=== PATIENT | male | born 1955 | race Caucasian/White ===

== ENCOUNTER 2016-10-20 20:43 | Emergency (ER) | payer SELFPAY ==
[2016-10-20] MEDS: AMIODARONE IV ONE ×2 (20:57→21:18)
[2016-10-20] MEDS: D5W IV ONE ×2 (20:57→21:18)
[2016-10-20] MEDS ORDERED: AMIODARONE IV ONE ×2 (20:59→21:01)
[2016-10-20] MEDS ORDERED: AMIODARONE 50 MG/ML IV ONE (20:59)
[2016-10-20] MEDS ORDERED: D5W IV ONE ×2 (20:59→21:01)
[2016-10-20] MEDS ORDERED: Sodium Chloride 0.9% 1,000 ML PRIMARY IV ONE ×2 (21:00→21:10)
[2016-10-20] MEDS ORDERED: ASPIRIN 81 MG (BABY) CHEWABLE TABLET PO ONE (21:10)
[2016-10-20] MEDS ORDERED: NORMAL SALINE 10 ML SYRINGE FLUSH IVP PRN (21:10)
--- NOTE | 2016-10-20 21:13 | EKG ---
[address] [place] [address] Measurements Intervals [place] Rate: 132 P: DE: 0 QRS: 128 QRSD: 158 T: 0 QT: 209 QTc: 287 Interpretive Statements SINUS RHYTHM WITH RUNS OF WIDE COMPLEX TACHYCARDIA, PROBABLE VENTRICULAR TACHYCARDIA INTRAVENTRICULAR CONDUCTION DELAY T WAVE INVERSION IN LEADS 1 AVL, CONSIDER LATERAL WALL ISCHEMIA LOSS OF R FORCES IN V3-V6 WITH ST ELEVATION, POSSIBLE LATERAL WALL INFARCT Compared to ECG 10/15/2015 09:24 Ventricular tachycardia now present Intraventricular conduction present Lateral wall ischemia or infarct now present Electronically Signed On 10-21-16 12:13:[address] [facility] by Marbin Sánchez [id number]
[2016-10-20] MEDS ORDERED: AMIODARONE IV SCH (21:15)
[2016-10-20 21:17] LABS: BASOPHILS # (AUTO) 0.04 10*3/UL; BASOPHILS % (AUTO) 0.2 % (0-1); EOSINOPHILS % (AUTO) 0.6 % (0-8); HEMATOCRIT 43.9 % (42.0-52.0); HEMOGLOBIN 15.1 g/dL (14.0-18.0); IMM GRAN % (AUTO) 0.2 % (0-5); IMM GRAN# (AUTO) 0.04 10*3/UL; LYMPHOCYTES # (AUTO) 0.52 10*3/uL; LYMPHOCYTES % (AUTO) 2.9 % (10-50); MEAN CORPUSCULAR HEMOGLOBIN 31.1 PG (27-31); MEAN CORPUSCULAR HGB CONC 34.4 g/dL (33-37); MEAN PLATELET VOLUME 10.8 FL (7.4-12.2); MONOCYTES # (AUTO) 0.98 10*3/UL (0.3-0.8); MONOCYTES % (AUTO) 5.6 % (5-15); NEUTROPHILS # (AUTO) 15.95 10*3/UL; NEUTROPHILS % (AUTO) 90.5 % (50-80); PLATELET MORPHOLOGY COMMENT NORMAL MORPHOLOGY (NORM); RDW COEFFICIENT OF VARIATION 14.3 % (11.5-14.5); RED BLOOD COUNT 4.86 10^6/uL (4.70-6.10); WHITE BLOOD COUNT 17.64 10^3/uL (4.8-10.8)
[2016-10-20 21:18] LABS: PROTHROMBIN TIME 10.7 secs (9.7-11.4)
[2016-10-20 21:20] LABS: BILIRUBIN,TOTAL 1.5 mg/dL (0.3-1.2); BUN/CREATININE RATIO 24.66 (6-20); CALCIUM 9.8 mg/dL (8.7-10.7); CREATININE 1.5 mg/dL (0.70-1.50); POTASSIUM 4.1 meq/L (3.8-5.2); TOTAL PROTEIN 7.6 g/dL (6.1-8.0)
[2016-10-20 21:21] LABS: MAGNESIUM 1.9 mg/dL (1.6-2.4)
[2016-10-20 21:22] LABS: TROPONIN I 0.043 ng/mL (< 0.040)
[2016-10-20] MEDS ORDERED: FUROSEMIDE 10 MG/1 ML - 4 ML IVP ONE (21:27)
[2016-10-20 21:31] LABS: CREATINE KINASE MB 0.34 NG/DL (0.00-5.00)
[2016-10-20] MEDS ORDERED: FUROSEMIDE 10 MG/1 ML - 4 ML ONE (21:34)
--- NOTE | 2016-10-20 21:37 | EKG ---
[address] [address] Measurements Intervals [place] Rate: 94 P: 9 CA: 177 QRS: 57 QRSD: 137 T: 269 QT: 370 QTc: 422 Interpretive Statements SINUS RHYTHM WITH FREQUENT VENTRICULAR PREMATURE COMPLEXES INTRAVENTRICULAR CONDUCTION DELAY INFERIOR T WAVE INVERSION, POSSIBLE MYOCARDIAL ISCHEMIA Compared to ECG 10/20/2016 20:55:55 Ventricular premature complex(es) now present Inferior T wave inversion now present Electronically Signed On 10-21-16 12:00:30 [facility] by Marbin Sánchez [email or web address]
[2016-10-20 21:43] LABS: VENOUS HCO3 24.3 mmol/L (22-26)
--- NOTE | 2016-10-20 22:31 | PDOC ---
Dyspnea HPI - General Chief Complaint: Dyspnea Stated Complaint: shortness of breath Date Seen by Provider: 10/20/16 Time Seen by Provider: 21:50 Source: POSITIVE: Patient, Old records Exam Limitations: POSITIVE: No limitations Treatment Prior to Arrival: REPORTS: None Nurse's Notes Reviewed & Considered: Yes - History of Present Illness Initial Comments: The patient is a 61-year-old male. He presents to the emergency room complaining of an approximately one day history of shortness of breath. Old record shows that he has a past diagnosis of congestive heart failure and cor pulmonale. Patient is on 3 L of oxygen by nasal cannula at night. Patient states he has had a "cold with some cough"for the past 2-1/2 days. Cough is minimally productive. Review of old records shows that he had an echocardiogram in October 2015 which showed an ejection fraction of 30%. He states he was recently seen by cardiology in [place] and had a stress test and an echocardiogram, and it was recommended that the patient have a cardiac catheterization, but the patient has not yet had this done. Patient used to smoke 2 packs of cigarettes per day, but has not smoked for several years, although he does chew about 1-1/2 cans of tobacco per day. Patient has a history of alcohol abuse and states he has not had any alcohol for the past 6-7 months. Patient also complains of prominent pedal edema. He denies any chest pain. He did become diaphoretic this evening. History of hypertension and non- insulin-dependent diabetes mellitus. Body Location Affected: REPORTS: Chest (Dyspnea) Timing: REPORTS: Gradual, Getting Worse Duration: >24 hours (Approximately 24 hours) Severity: Moderate Quality: REPORTS: Other (Patient denies any chest pain or other pain) Initiating Event: REPORTS: Upper Respiratory Illness (Cold symptoms for the past 2-1/2 days) Context: REPORTS: Sleep (Worse with trying to sleep), Exertion (Worse with exertion) Exacerbated By: REPORTS: Exertion, Laying Flat, Coughing Associated Symptoms: REPORTS: Leg Swelling (Prominent pulmonary edema). DENIES : Fever, Chills, Sweating, Chest Pain, Chest Discomfort, Left Chest, Right Chest , Central Chest, Chest Heaviness, Chest Tightness, Painful Breathing, Radiation to Back, Radiation to Jaw, Radiation to Arm, Bloody Cough, Productive Cough, Heart Racing, Leg Pain, Calf Pain, Ankle Swelling, Dizziness, Light-Headedness, Anxiety, Tingling - Hands, Tingling - Face, Muscle Spasms - Hands, Muscle Spasms - Feet Similar Symptoms Previously: Yes Recently seen/treated/hospitalized: Yes Any Prior Injuries Related to Current Complaint?: No - Patient Home Medications Home Medications: Home Medications Cholecalciferol (Vitamin D3) [Vitamin D3] 400 unit PO DAILY 10/09/15 Ibuprofen [Motrin Ib] 400 mg PO Q4-6H tab 01/04/16 Losartan/Hydrochlorothiazide [Losartan-Hctz 100-25 Mg Tab] 1 unit ORAL QD #90 tab 05/23/16 Aspirin [Aspir 81] 81 mg PO DAILY tab 06/05/16 Grape Seed Extract 50 mg PO QD cap 06/05/16 Metoprolol Succinate [Toprol Xl] 1 tab PO DAILY tab 06/05/16 Atorvastatin Calcium [Lipitor] 1 unit PO QHS #90 tab 06/21/16 Furosemide 1 unit PO BID #60 tab 08/23/16 Potassium Chloride [Klor-Con M20] 40 meq PO TID #270 tab 08/23/16 Metformin HCl 1 tab PO BID #180 tab 09/21/16 - Patient Allergies Allergies/Adverse Reactions: Allergies Allergy/AdvReac Type Severity Reaction Status Date / Time No Known Allergies Allergy Verified 10/20/16 20:49 Past Medical History - heen HEENT History: Denies History Cardiovascular History: Hypertension, Hyperlipidemia Respiratory History: Denies History Gastrointestinal History: Denies History Genitourinary History: Denies History Endocrine History: Denies History Musculoskeletal History: Denies History Prosthesis or Implant: No Neurological History: Denies History Blood Disorders: Denies History Psychiatric History: Denies History History of Sexually Transmitted Diseases: No Cancer History: Denies History In Past Year Been Physically Harmed or Verbally Threatened: No History of MDRO: No History of Other Communicable Diseases: No Tobacco Use: Never Smoker Alcohol Use: Rarely Substance Use Type: None Previous Surgical History: Yes Type / Date of Surgery: KNEE IN 70'S Anesthesia Reactions: No Malignant Hyperthermia: No Significant Family History: Cancer, Diabetes, Hypertension Past Medical History Reviewed: Reviewed - No Changes ROS - Limitations ROS Limitations: No Limitations Constitution: REPORTS: Diaphoresis Cardiovascular: REPORTS: Edema (Prominent increase in chronic pedal edema) Respiratory: REPORTS: Cough Non Productive, Shortness Of Breath Neurological: REPORTS: Denies Neuro Symptoms Gastrointestinal: REPORTS: Denies GI Symptoms Endocrine: REPORTS: Denies Symptoms Musculoskeletal: REPORTS: Denies MS Symptoms Genitourinary: REPORTS: Denies Symptoms Eyes: REPORTS: Denies Symptoms ENT: REPORTS: Denies Symptoms Skin: REPORTS: Diaphoresis Lympathic: REPORTS: Denies Lympathic Symptoms Immunologic: POSITIVE: Denies Symptoms Psychiatric: POSITIVE: Denies Psych Symptoms Dyspnea Physical Exam - General Appearance General Appearance: REPORTS: Alert, Cooperative, Moderate Distress (Due to shortness of breath), Other (Morbidly obese) - HEENT HEENT: POSITIVE: Head Inspection Nml, Eyes Inspection Nml, Ears Inspection Nml, Nose Inspection Nml, Oral/Dental Inspect. Nml, Pharynx Inspect. Nml, PERRL, EOMI - Neck Neck: REPORTS: Normal Inspection, No Carotid Bruit - Respiratory Respiratory: REPORTS: No Pleuritic Chest Pain, Speaks Full Sentences, No Pain on Inspiration, Respiratory Distress (Moderate), Fatigue, Rales, Decreased Air Movement. DENIES: No Respiratory Distress, Breath Sounds Normal (Bibasilar rales), Wheezes, Rhonchi, Prolonged Expirations, Accessory Muscle Use, Retractions, Splinting, Dull on Percussion, Chest Wall Tenderness, Speaks Broken Sentences, Stridor, Respiratory Failure - Cardiovascular Cardiovascular: REPORTS: Heart Sounds Normal, Equal Pulses, Strong Pulses, No Murmur, No Gallop, No Friction Rub, No JVD, Irregularly Irreg Rhythm (Runs of ventricular tachycardia as above), Tachycardia (Runs of ventricular tachycardia as above), Frequent Extrasystoles (Runs of ventricular tachycardia as above), S4 Gallop. DENIES: Regular Rate and Rhythm (Runs of ventricular tachycardia noted on heart monitor up to 6 consecutive beats of V. tach, monomorphic, intermittent ventricular tachycardia noted on printing specialist; patient does not sense any irregularity.), JVD Present (Unable to detect JVD due to patient's obesity around the neck), S3 Gallop, Murmur, Friction Rub, Taniya's Crunch, Bilat BPs Asymmetrical Peripheral Pulses: Radial (R): 2+, Radial (L): 2+ - Abdomen Abdomen: Soft: (All Quadrants), Normal Bowel Sounds: (All Quadrants), Denies Tenderness: (All Quadrants), No Splenomegaly: (All Quadrants), No Hepatomegaly: (All Quadrants), No Guarding: (All Quadrants), No Rebound: (All Quadrants), No Palpable Pulse: (All Quadrants), No Palpabale Mass: (All Quadrants), No Distention: (All Quadrants), No Rigidity: (All Quadrants) - Skin Skin: REPORTS: Intact, Normal For Race, Warm, Dry, No Rash - Extremities Extremity: Non-Tender: (All Extremities), Normal ROM: (All Extremities), Pelvis Stable: (All Extremities), Normal Tendon Exam: (All Extremities), Edema / Swelling: (All Extremities) Additional Extremities Details: Prominent pedal edema - Neurological / Psychological Neurological: POSITIVE: Oriented X3, 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 As Tested, Motor Normal, Sensation Normal, 5, 6 Images - Complete Complete: 1 - Pedal edema Dyspnea Progress - Results Reviewed by me Xrays/CTs/US Reviewed by me: Yes Discussed with Radiologist: No Radiology Findings: Prominent cardiomegaly with some congestion Lab Results Reviewed: Yes (BNP 2190; troponin 0.043; white blood cell count 17, 000) Lab Results:: Laboratory Results 10/20/16 10/20/16 Range/Units 20:52 21:14 WBC 17.64 H (4.8-10.8) 10^3/uL RBC 4.86 (4.70-6.10) 10^6/uL Hgb 15.1 (14.0-18.0) g/dL Hct 43.9 (42.0-52.0) % MCV 90.3 H (80-90) FL MCH 31.1 H (27-31) PG MCHC 34.4 (33-37) g/dL RDW Std Deviation 45.8 (39-50) fL RDW Coeff of Yared 14.3 (11.5-14.5) % Plt Count 218 (140-350) 10*3/uL MPV 10.8 (7.4-12.2) FL Immature Gran % (Auto) 0.2 (0-5) % Neut % (Auto) 90.5 H (50-80) % Lymph % (Auto) 2.9 L (10-50) % Power % (Auto) 5.6 (5-15) % Eos % (Auto) 0.6 (0-8) % Baso % (Auto) 0.2 (0-1) % Immature Gran # (Auto) 0.04 10*3/UL Neut # (Auto) 15.95 10*3/UL Lymph # (Auto) 0.52 10*3/uL Power # (Auto) 0.98 H (0.3-0.8) 10*3/UL Eos # (Auto) 0.11 10*3/UL Baso # (Auto) 0.04 10*3/UL WBC Morphology Comment Normal morphology (NORM) Plt Morphology Comment Normal morphology (NORM) RBC Morph Comment Normal morphology (NORM) PT 10.7 (9.7-11.4) secs INR 1.04 (0.00-5.90) N/A D-Dimer 0.56 (0.00-0.59) mg/L VBG pH 7.46 H (7.32-7.42) VBG pCO2 34 L (45-55) mmHg VBG HCO3 24.3 (22-26) mmol/L VBG Base Excess 0 (-2-2) MMOL/L Sodium 137 (135-145) meq/L Potassium 4.1 (3.8-5.2) meq/L Chloride 97 L (98-112) meq/L Carbon Dioxide 25 (23-33) meq/L Anion Gap 15 (5-20) BUN 37 H (7-22) mg/dL Creatinine 1.5 (0.70-1.50) mg/dL Estimated GFR 48 (>60 ml/min/1.73m(2)) BUN/Creatinine Ratio 24.66 H (6-20) Glucose 120 H (78-110) mg/dL Calculated Osmolality 293.0 H (267-292) mOsm/kg Calcium 9.8 (8.7-10.7) mg/dL Magnesium 1.9 (1.6-2.4) mg/dL Total Bilirubin 1.5 H (0.3-1.2) mg/dL AST 49 (21-57) IU/L ALT 56 (21-72) IU/L Alkaline Phosphatase 189 H (38-126) IU/L CK-MB (CK-2) 0.34 (0.00-5.00) NG/DL Troponin I 0.043 H (< 0.040) ng/mL NT-Pro-B Natriuret Pep 2190 H (0-125) PG/ML Total Protein 7.6 (6.1-8.0) g/dL Albumin 4.4 (3.5-4.8) g/dL Globulin 3.2 (2.50-4.10) g/dL Albumin/Globulin Ratio 1.30 (1.3-2.0) mg/g EKG Interpretation:: POSITIVE: Abnormal EKG (Frequent runs of ventricular tachycardia. Intraventricular conduction delay) - Patient's Progress Pain Medication Addressed: POSITIVE: Not Applicable School/Work Release Addressed: POSITIVE: Not Applicable Re-Examine Time: 21:40 Re-Examine Comment: Patient given amiodarone 150 mg slow IV, over 10 minutes followed by amiodarone, by constant infusion, 1 mg/m. Patient continued to have frequent ventricular ectopy and patient given another 150 mg amiodarone over 10 minutes, with resolution of ventricular tachycardia. Re-Examine Time:: 22:00 Re-Examine Comment: Patient given 40 mg of Lasix IV and was maintained on oxygen supplementation throughout his stay in the emergency room. Blood pressure 150/100 at this time. Case discussed with Dr. Esteban, hospitalist, who recommends patient be sent to cardiology in [place]. Re-examine Time: 22:15 Re-Examine Comment: Case discussed with Dr. Hull cardiology, [place], who was accepted the patient in transfer. Patient feeling much better and is breathing much easier on discharge from our ER. His rhythm is normal sinus and his blood pressure is well-controlled. Status: POSITIVE: Improved, Re-Examined Air Movement: POSITIVE: Fair Quality Measure Initiative: CP/AMI: POSITIVE: EKG, ASA, Transfer - Consult Consult (If Yes, Name of Consulting MD & Time Called): Yes (Dr. Hull, cardiology,[id number]) Consulting MD will see pt:: POSITIVE: Recommended Transfer Counseled: POSITIVE: Patient, RE: Lab Results, RE: Radiology Results, RE: DX, RE : Need for F/U Patient Care Time - Estimated PCT Patient Care Time (In Minutes): 60 Vital Signs - Recent Vital Signs Vital Signs: Vital Signs (Last 8 hours) Temp Pulse Resp BP Pulse Ox 10/20/16 20:44 98 F 71 28 H 206/139 93 - VS Reviewed Vital Signs Reviewed: Yes Discharge Clinical Impression: Congestive heart failure, Obesity, morbid, Paroxysmal ventricular tachycardia Discharge Disposition: Transferred to Short Term Facility Condition: Fair Date Decision to Transfer to Another Facility: 10/20/16 Time Decision to Transfer to Another Facility: 22:00
[2016-10-20 23:11] VITALS: RESP 20; TEMP 97.2
--- NOTE | 2016-10-22 08:25 | DI ---
XR CXR 1VW,10/20/2016 9:10 PM: Clinical History: Chest pain Previous Exam: October 15, 2015 Findings: A single frontal radiograph of the chest is obtained, and demonstrates some silhouetting of the left hemidiaphragm. There is cardiomegaly noted. Impression: 1. Silhouetting of left hemidiaphragm is most consistent with airspace disease. This could also repre sent a pleural effusion. Correlate clinically.
== END 2016-10-20 22:40 ==
LOC: ER 20:43
DX: I50.9 Heart failure, unspecified (principal); I47.2 Ventricular tachycardia; E66.01 Morbid (severe) obesity due to excess calories; R05 Cough
CPT/HCPCS: 36415; 71010; 80053; 82553; 82803; 83735; 83880; 84484; 85025; 85379; 85610; 93005; 93010; 96365; 96366; 96375; 99284 ×2; J0282 ×2; J1940; J7030; J7060

== ENCOUNTER → 2016-11-05 | Outpatient (CLI) | payer SELFPAY ==
[2016-11-05 09:47] LABS: PROTHROMBIN TIME 16.8 secs (9.7-11.4)
[2016-11-05 09:48] LABS: HEMATOCRIT 41.4 % (42.0-52.0); HEMOGLOBIN 13.8 g/dL (14.0-18.0); MEAN CORPUSCULAR HEMOGLOBIN 30.5 PG (27-31); MEAN CORPUSCULAR HGB CONC 33.3 g/dL (33-37); MEAN PLATELET VOLUME 10.4 FL (7.4-12.2); RDW COEFFICIENT OF VARIATION 14.5 % (11.5-14.5); RED BLOOD COUNT 4.52 10^6/uL (4.70-6.10); WHITE BLOOD COUNT 8.26 10^3/uL (4.8-10.8)
[2016-11-05 10:02] LABS: BLOOD UREA NITROGEN 21 mg/dL (7-22); CALCIUM 9.6 mg/dL (8.7-10.7); CHLORIDE 99 meq/L (98-112); CREATININE 1.2 mg/dL (0.70-1.50); EST GLOMERULAR FILTRATION > 60 (>60 ml/min/1.73m(2)); GLUCOSE 105 mg/dL (78-110); POTASSIUM 4.5 meq/L (3.8-5.2); SODIUM 137 meq/L (135-145)
== END ==
LOC: LAB 09:05
PROVIDERS: ATTEND Physician Assistant Medical
DX: I48.92 Unspecified atrial flutter (principal); I42.9 Cardiomyopathy, unspecified
CPT/HCPCS: 36415; 80048; 85027; 85610

== ENCOUNTER → 2016-11-12 | Outpatient (CLI) | payer SELFPAY ==
[2016-11-12 10:40] LABS: PROTHROMBIN TIME 93.4 secs (9.7-11.4)
== END ==
LOC: LAB 09:27
PROVIDERS: ATTEND Nurse Practitioner Family
DX: I48.91 Unspecified atrial fibrillation (principal)
CPT/HCPCS: 36415; 85610

== ENCOUNTER → 2016-11-19 | Outpatient (CLI) | payer SELFPAY ==
[2016-11-19 08:36] LABS: PROTHROMBIN TIME 62.4 secs (9.7-11.4)
== END ==
LOC: LAB 07:55
PROVIDERS: ATTEND Nurse Practitioner Family
DX: I48.91 Unspecified atrial fibrillation (principal)
CPT/HCPCS: 36415; 85610

== ENCOUNTER 2016-12-19 20:25 | Emergency (ER) | payer SELFPAY ==
[2016-12-19] MEDS ORDERED: Sodium Chloride 0.9% 1,000 ML PRIMARY IV ONE (20:42)
[2016-12-19] MEDS ORDERED: MECLIZINE 25 MG CHEWABLE TABLET PO ONE (20:42)
[2016-12-19] MEDS ORDERED: ONDANSETRON 4 MG/2 ML VIAL IVP ONE (20:42)
[2016-12-19 20:45] VITALS: RESP 22; TEMP 97.5
--- NOTE | 2016-12-19 20:48 | PDOC ---
Gen Adult / Medical Screen HPI - General Chief Complaint: General Medical Stated Complaint: DIZZY, NAUSEA WITH FEELING LIGHTHEADED Date Seen by Provider: 12/19/16 Time Seen by Provider: 20:43 Source: POSITIVE: Patient Exam Limitations: POSITIVE: No limitations Nurse's Notes Reviewed & Considered: Yes EMS Report Reviewed & Considered: Verbal - Indicators Temperature Between 95 and 101 Degrees: Yes Respirations Between 12 and 20: No (22) Blood Pressure Between 100-165 (sys) and 60-100 (conde): Yes Pulse Range Between 60-105 (100 for age > 60 years): Yes Severe Pain (Greater than 5/10 Reported): No Chest or Abdominal Pain: No Inability to Walk: No Pt Reports Active High Risk Cond. (TB/Hepatitis/HIV/Chemo): No Abnormal Mental Status: No - History of Present Illness Initial Comments: Patient comes in with approximately one and half hour duration of dizziness with nausea and vomiting. At 7 PM patient was in his normal state of health sitting on the couch in the living room watching TV after having eaten dinner. He developed sudden onset of dizziness with nausea and a feeling as though the room are spinning. He contacted EMS who has brought him in for further evaluation. He had a pacemaker placed in October. He denies any fever but does have sweats. He has nausea and vomiting, but no diarrhea. He denies any chest pain, no shortness of breath, no cough. Body Location Affected: REPORTS: Head Timing: REPORTS: Abrupt Duration: 1-3 hours Similar Symptoms Previously: No Recent Care Received: REPORTS: Denies Any Prior Injuries Related to Current Complaint?: No - Patient Home Medications Home Medications: Home Medications Cholecalciferol (Vitamin D3) [Vitamin D3] 400 unit PO DAILY 10/09/15 Losartan/Hydrochlorothiazide [Losartan-Hctz 100-25 Mg Tab] 1 unit ORAL QD #90 tab 05/23/16 Aspirin [Aspir 81] 81 mg PO DAILY tab 06/05/16 Grape Seed Extract 50 mg PO QD cap 06/05/16 Atorvastatin Calcium [Lipitor] 1 unit PO QHS #90 tab 06/21/16 Furosemide 1 unit PO BID #60 tab 08/23/16 Metformin HCl 1 tab PO BID #180 tab 09/21/16 Amiodarone HCl 200 mg PO DAILY tab 11/09/16 Carvedilol 1 tab PO BID tab 11/09/16 Potassium Chloride [Klor-Con M20] 10 meq PO BID #270 tab 11/09/16 Spironolactone 1 tab PO DAILY tab 11/09/16 Warfarin Sodium 7.5 mg PO DAILY 12/19/16 - Patient Allergies Allergies/Adverse Reactions: Allergies Allergy/AdvReac Type Severity Reaction Status Date / Time No Known Allergies Allergy Verified 12/19/16 20:35 Past Medical History - heen HEENT History: Denies History Cardiovascular History: Hypertension, Hyperlipidemia Respiratory History: Denies History Gastrointestinal History: Denies History Genitourinary History: Denies History Endocrine History: Denies History Musculoskeletal History: Denies History Prosthesis or Implant: No Neurological History: Denies History Blood Disorders: Denies History Psychiatric History: Denies History History of Sexually Transmitted Diseases: No Cancer History: Denies History History of MDRO: No History of Other Communicable Diseases: No Alcohol Use: Rarely Substance Use Type: None Previous Surgical History: Yes Type / Date of Surgery: KNEE IN 70'S Anesthesia Reactions: No Malignant Hyperthermia: No Significant Family History: Cancer, Diabetes, Hypertension ROS - Limitations ROS Limitations: No Limitations Constitution: REPORTS: Chills, Diaphoresis Cardiovascular: REPORTS: Denies Cardiac Symptoms Respiratory: REPORTS: Denies Resp Symptoms Neurological: REPORTS: Dizziness Gastrointestinal: REPORTS: Nausea, Vomitting Endocrine: REPORTS: Denies Symptoms Musculoskeletal: REPORTS: Denies MS Symptoms Genitourinary: REPORTS: Denies Symptoms ENT: REPORTS: Denies Symptoms Skin: REPORTS: Denies Skin Symptoms Lympathic: REPORTS: Denies Lympathic Symptoms Immunologic: POSITIVE: Denies Symptoms Psychiatric: POSITIVE: Denies Psych Symptoms Gen Adult/Medical Screen Exam - General Appearance General Appearance: POSITIVE: Alert, Cooperative, No Evidence of Trauma, Mild Distress - HEENT HEENT: POSITIVE: Head Inspection Nml, Eyes Inspection Nml, Ears Inspection Nml, Nose Inspection Nml, Oral/Dental Inspect. Nml, Pharynx Inspect. Nml, PERRL, EOMI - Pupils Pupil Size: 4 mm: Bilateral - Neck Neck: POSITIVE: Normal Inspection, Thyroid Normal - Respiratory Respiratory: POSITIVE: No Respiratory Distress, Breath Sounds Normal, Chest Non- Tender - Cardiovascular Cardiovascular: POSITIVE: Regular Rate & Rhythm, No Murmur, No Gallop, PMI Normal - Abdomen Abdomen: Soft: (All Quadrants), Normal Bowel Sounds: (All Quadrants), Denies Tenderness: (All Quadrants) - Back Back: POSITIVE: Normal Inspection - Neurological / Psychological Mental Status: POSITIVE: Mood Normal, Affect Normal Orientation: POSITIVE: Oriented x 3 - Skin Skin: POSITIVE: Normal Color, Warm, Dry, No Rash - Extremities Extremity: Non-Tender: (All Extremities), Normal ROM: (All Extremities), Normal Inspection: (All Extremities), Pelvis Stable: (All Extremities) Procedures - Laceration/Wound Repair Did patient have a laceration repair: No Gen Adlt/Medical Scrn Progress - Results Reviewed by me Xrays/CTs/US Reviewed by me: Yes Discussed with Radiologist: Yes Lab Results Reviewed: Yes Lab Results:: Laboratory Results 12/19/16 Range/Units 20:40 WBC 8.24 (4.8-10.8) 10^3/uL RBC 5.08 (4.70-6.10) 10^6/uL Hgb 15.5 (14.0-18.0) g/dL Hct 45.6 (42.0-52.0) % MCV 89.8 (80-90) FL MCH 30.5 (27-31) PG MCHC 34.0 (33-37) g/dL RDW Std Deviation 47.3 (39-50) fL RDW Coeff of Yared 14.7 H (11.5-14.5) % Plt Count 250 (140-350) 10*3/uL MPV 10.0 (7.4-12.2) FL Immature Gran % (Auto) 0.2 (0-5) % Neut % (Auto) 67.3 (50-80) % Lymph % (Auto) 19.7 (10-50) % [place] % (Auto) 10.8 (5-15) % Eos % (Auto) 1.5 (0-8) % Baso % (Auto) 0.5 (0-1) % Immature Gran # (Auto) 0.02 10*3/UL Neut # (Auto) 5.55 10*3/UL Lymph # (Auto) 1.62 10*3/uL [place] # (Auto) 0.89 H (0.3-0.8) 10*3/UL Eos # (Auto) 0.12 10*3/UL Baso # (Auto) 0.04 10*3/UL WBC Morphology Comment Normal morphology (NORM) Plt Morphology Comment Normal morphology (NORM) RBC Morph Comment Normal morphology (NORM) Sodium 138 (135-145) meq/L Potassium 3.9 (3.8-5.2) meq/L Chloride 99 (98-112) meq/L Carbon Dioxide 27 (23-33) meq/L Anion Gap 12 (5-20) BUN 24 H (7-22) mg/dL Creatinine 1.0 (0.70-1.50) mg/dL Estimated GFR > 60 (>60 ml/min/1.73m(2)) BUN/Creatinine Ratio 24.00 H (6-20) Glucose 120 H (78-110) mg/dL Calculated Osmolality 290.0 (267-292) mOsm/kg Calcium 9.6 (8.7-10.7) mg/dL Magnesium 2.0 (1.6-2.4) mg/dL Total Bilirubin 1.1 (0.3-1.2) mg/dL AST 52 (21-57) IU/L ALT 62 (21-72) IU/L Alkaline Phosphatase 175 H (38-126) IU/L Troponin I 0.024 (< 0.040) ng/mL Total Protein 7.7 (6.1-8.0) g/dL Albumin 4.3 (3.5-4.8) g/dL Globulin 3.4 (2.50-4.10) g/dL Albumin/Globulin Ratio 1.20 L (1.3-2.0) mg/g EKG Interpretation:: POSITIVE: Other (Paced rhythm) - Patient's Progress Pain Medication Addressed: POSITIVE: Not Applicable Re-Examine Time: 22:07 Status: POSITIVE: Improved MDM / ED Course: Patient was evaluated, an IV was started, blood drawn and sent to the lab for studies, radiographic studies obtained. EKG was obtained interpreted by me showing a paced rhythm. Findings: CBC is unremarkable. Comprehensive metabolic panel shows elevated BUN. Magnesium is normal. Chest x-ray shows cardiomegaly without congestive heart failure. CT scan of his head shows no acute intracranial abnormalities. Assessment: Dizziness improved with IV hydration, and meclizine. 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 - Consult Counseled: POSITIVE: Patient, Family, RE: Lab Results, RE: Radiology Results, RE : DX, RE: Need for F/U Patient Care Time - Estimated PCT Patient Care Time (In Minutes): 45 Vital Signs - Recent Vital Signs Vital Signs: Vital Signs (Last 8 hours) Temp Pulse Resp BP Pulse Ox 12/19/16 20:25 97.5 F 82 22 130/76 92 - VS Reviewed Vital Signs Reviewed: Yes Discharge Clinical Impression: Dehydration, Dizziness Discharge Disposition: Discharged to Home Condition: Stable Patient Instructions Given at Discharge: Dehydration (ED), Syncope (ED)
[2016-12-19 21:00] LABS: BASOPHILS # (AUTO) 0.04 10*3/UL; BASOPHILS % (AUTO) 0.5 % (0-1); EOSINOPHILS # (AUTO) 0.12 10*3/UL; EOSINOPHILS % (AUTO) 1.5 % (0-8); HEMATOCRIT 45.6 % (42.0-52.0); HEMOGLOBIN 15.5 g/dL (14.0-18.0); LYMPHOCYTES # (AUTO) 1.62 10*3/uL; MEAN CORPUSCULAR HEMOGLOBIN 30.5 PG (27-31); MEAN CORPUSCULAR VOLUME 89.8 FL (80-90); MONOCYTES # (AUTO) 0.89 10*3/UL (0.3-0.8); MONOCYTES % (AUTO) 10.8 % (5-15); NEUTROPHILS # (AUTO) 5.55 10*3/UL; NEUTROPHILS % (AUTO) 67.3 % (50-80); RED BLOOD COUNT 5.08 10^6/uL (4.70-6.10)
[2016-12-19 21:01] LABS: PLATELET MORPHOLOGY COMMENT NORMAL MORPHOLOGY (NORM); RBC MORPHOLOGY COMMENT NORMAL MORPHOLOGY (NORM); WBC MORPHOLOGY COMMENT NORMAL MORPHOLOGY (NORM)
[2016-12-19 21:09] LABS: BLOOD UREA NITROGEN 24 mg/dL (7-22); CALCIUM 9.6 mg/dL (8.7-10.7); EST GLOMERULAR FILTRATION > 60 (>60 ml/min/1.73m(2)); SERUM ALBUMIN 4.3 g/dL (3.5-4.8)
--- NOTE | 2016-12-19 21:42 | DI ---
AP CHEST X-RAY, 12/19/2016 8:42 PM : Clinical History: Dizziness. Previous Exam: 10/20/2016. There is no acute soft tissue or bony abnormality. Since the previous exam, a dual-chamber pacemaker with a coronary sinus pacing lead has been inserted. There is cardiomegaly without CHF. Lungs are judd ar. Mediastinal structures are normal. There are no pulmonary nodules. Readin. There is no acute infiltrate or effusion. 2. Cardiomegaly without CHF.
--- NOTE | 2016-12-19 21:42 | DI ---
CT HEAD SCAN WITHOUT IV CONTRAST, 12/19/2016 8:43 PM : Clinical History: Dizziness. Previous Exam: None at this facility. Scans are obtained from the foramen magnum to the vertex without IV contrast. The 4th, 3rd, and lateral ventricles are of normal size, shape, position, and contour for the patient 's age. There are no abnormal areas of increased or decreased density. There is no evidence of an acu te hemorrhagic or bland infarct. There is no cerebellar pontine angle mass. There are no extracerebra l mantles or shift of the midline structures. Bone window evaluation is normal. The paranasal sinuses are normal. There is a fatty tumor measuring about 20 mm in diameter located just to the left of mid line at the level of the coronal suture. 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 READING: There is no evidence of an acute hemorrhagic or bland infarct. There is no cerebellar pontine angle m ass.
--- NOTE | 2016-12-19 22:44 | EKG ---
[address] [address] Measurements Intervals [place] Rate: 84 P: 30 LA: 162 QRS: -65 QRSD: 134 T: 77 QT: 431 QTc: 472 Interpretive Statements ELECTRONIC VENTRICULAR PACEMAKER ABNORMAL RHYTHM ECG INTERPRETATION BASED ON A DEFAULT AGE OF 40 YEARS Compared to ECG 10/20/2016 21:36:48 Sinus rhythm no longer present Ventricular premature complex(es) no longer present Intraventricular conduction delay no longer present T-wave abnormality no longer present Possible ischemia no longer present Electronically Signed On 12-20-16 08:15:37 MDT by Donavan Lopez MD [id number]
== END 2016-12-19 22:18 | disposition home or self-care (01) ==
LOC: ER 20:25
DX: E86.0 Dehydration (principal); R11.2 Nausea with vomiting, unspecified; R42 Dizziness and giddiness; Z95.0 Presence of cardiac pacemaker
CPT/HCPCS: 70450; 71010; 80053; 83735; 84484; 85025; 93005; 93010; 96374; 99284; J2405; J7030

== ENCOUNTER → 2017-01-24 | Outpatient (CLI) | payer SELFPAY ==
[2017-01-24 16:25] LABS: HEMOGLOBIN A1C 5.26 % (4.2-6.0)
== END ==
LOC: MOB LAB 13:32
PROVIDERS: ATTEND Nurse Practitioner
DX: E11.9 Type 2 diabetes mellitus without complications (principal)
CPT/HCPCS: 36415; 83036

== ENCOUNTER → 2017-01-31 | Outpatient (CLI) | payer SELFPAY ==
--- NOTE | 2017-02-01 14:42 | DI ---
RIGHT KNEE, 01/31/2017 11:29 AM: Clinical History: Right knee pain. Previous Exam: None at this facility. 4 views are submitted. The AP and tunnel projections are weight bearing views. There is a small supra patellar effusion. Severe joint space narrowing is present in the medial and lateral compartments wit h bony proliferative change medially and laterally on both sides of the joint space. Subchondral cyst ic changes are present in the medial and lateral compartments on both sides of the joint. Moderate ar thritic changes present in the patellofemoral compartment. There are large bony densities in the popl iteal fossa consistent with synovial osteochondromas. Readin. Severe degenerative arthritic disease in the medial and lateral compartments with moderately nathan re arthritic change in the patellofemoral compartment. 2. Synovial osteochondromatosis involving the popliteal fossa.
--- NOTE | 2017-02-01 14:46 | DI ---
LEFT KNEE, 01/31/2017 11:29 AM: Clinical History: Left knee pain. Previous Exam: None at this facility. 4 views are submitted. The AP and tunnel projections are weight bearing views. There is a small supra patellar effusion and bony densities are present in the suprapatellar bursa consistent with synovial osteochondromas. There is severe joint space narrowing of the medial compartment with erosive change of the medial tibial plateau and remodeling. Severe joint space narrowing is present in the medial co mpartment with moderately severe arthritic change of the patellofemoral compartment. There is chondro calcinosis. Readin. Severe degenerative arthritic disease involving the medial and lateral compartments with moderate ly severe disease of the patellofemoral compartment. 2. 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
== END ==
LOC: ORTHO 11:40
PROVIDERS: ATTEND Physician Assistant
DX: M25.561 Pain in right knee (principal); M25.562 Pain in left knee; M11.262 Other chondrocalcinosis, left knee; M17.0 Bilateral primary osteoarthritis of knee; D48.0 Neoplasm of uncertain behavior of bone and articular cartilage
CPT/HCPCS: 73564

== ENCOUNTER → 2017-03-01 | Outpatient (CLI) | payer SELFPAY ==
[2017-03-01 11:12] LABS: BLOOD UREA NITROGEN 27 mg/dL (7-22); CALCIUM 9.8 mg/dL (8.7-10.7); EST GLOMERULAR FILTRATION > 60 (>60 ml/min/1.73m(2))
== END ==
LOC: MOB LAB 09:32
PROVIDERS: ATTEND Nurse Practitioner
DX: I10 Essential (primary) hypertension (principal); E87.5 Hyperkalemia; I50.22 Chronic systolic (congestive) heart failure
CPT/HCPCS: 36415; 80048; 83880

== ENCOUNTER → 2017-05-03 | Outpatient (CLI) | payer SELFPAY ==
[2017-05-03 09:53] LABS: BASOPHILS # (AUTO) 0.04 10*3/UL; BASOPHILS % (AUTO) 0.7 % (0-1); EOSINOPHILS # (AUTO) 0.12 10*3/UL; EOSINOPHILS % (AUTO) 2.1 % (0-8); HEMATOCRIT 43.9 % (42.0-52.0); HEMOGLOBIN 14.8 g/dL (14.0-18.0); LYMPHOCYTES # (AUTO) 1.54 10*3/uL; MEAN CORPUSCULAR HEMOGLOBIN 30.8 PG (27-31); MEAN CORPUSCULAR HGB CONC 33.7 g/dL (33-37); MEAN CORPUSCULAR VOLUME 91.5 FL (80-90); MEAN PLATELET VOLUME 10.6 FL (7.4-12.2); MONOCYTES # (AUTO) 0.56 10*3/UL (0.3-0.8); MONOCYTES % (AUTO) 9.6 % (5-15); NEUTROPHILS # (AUTO) 3.58 10*3/UL; NEUTROPHILS % (AUTO) 61.1 % (50-80)
[2017-05-03 10:14] LABS: PLATELET MORPHOLOGY COMMENT NORMAL MORPHOLOGY (NORM); RBC MORPHOLOGY COMMENT NORMAL MORPHOLOGY (NORM); WBC MORPHOLOGY COMMENT NORMAL MORPHOLOGY (NORM)
[2017-05-03 10:27] LABS: BLOOD UREA NITROGEN 30 mg/dL (7-22); CALCIUM 9.5 mg/dL (8.7-10.7); EST GLOMERULAR FILTRATION > 60 (>60 ml/min/1.73m(2)); HDL CHOLESTEROL 48 mg/dL (40-150); SERUM ALBUMIN 3.9 g/dL (3.5-4.8); SERUM CHOLESTEROL 168 mg/dL (120-200)
[2017-05-03 10:29] LABS: HEMOGLOBIN A1C 5.47 % (4.2-6.0)
== END ==
LOC: MOB LAB 09:09
PROVIDERS: ATTEND Nurse Practitioner
DX: E11.9 Type 2 diabetes mellitus without complications (principal); I50.22 Chronic systolic (congestive) heart failure; I10 Essential (primary) hypertension; E78.5 Hyperlipidemia, unspecified; E66.01 Morbid (severe) obesity due to excess calories
CPT/HCPCS: 36415; 80053; 80061; 83036; 84443; 85025

== ENCOUNTER 2018-11-21 08:59 | Inpatient (IN) ==
[2018-11-21] MEDS ORDERED: Sodium Chloride 0.9% 1,000 ML PRIMARY IV ONE (09:22)
--- NOTE | 2018-11-21 09:28 | EKG ---
[address] [place] [id number] Measurements Intervals [place] Rate: 76 P: 41 ND: 199 QRS: -50 QRSD: 115 T: 83 QT: 431 QTc: 461 Interpretive Statements ELECTRONIC VENTRICULAR PACEMAKER with VPCs ABNORMAL RHYTHM ECG Compared to ECG 12/19/2016 20:31:39 VPCs are more frequent, otherwise No significant changes Electronically Signed On 11-21-18 11:01:38 MDT by Donavan Lopez MD [email or web address]
[2018-11-21 09:32] LABS: BASOPHILS # (AUTO) 0.04 10*3/UL; BASOPHILS % (AUTO) 0.5 % (0-1); EOSINOPHILS # (AUTO) 0.23 10*3/UL; EOSINOPHILS % (AUTO) 2.6 % (0-8); Hemoglobin [HGB] 14.6 g/dL (14.0-18.0); LYMPHOCYTES # (AUTO) 1.69 10*3/uL; MEAN CORPUSCULAR HEMOGLOBIN 30.7 PG (27-31); MEAN CORPUSCULAR HGB CONC 33.2 g/dL (33-37); MEAN CORPUSCULAR VOLUME 92.4 FL (80-90); MEAN PLATELET VOLUME 10.8 FL (7.4-12.2); MONOCYTES # (AUTO) 0.86 10*3/UL (0.3-0.8); MONOCYTES % (AUTO) 9.7 % (5-15); NEUTROPHILS # (AUTO) 6.01 10*3/UL; NEUTROPHILS % (AUTO) 67.9 % (50-80); RED BLOOD COUNT 4.76 10^6/uL (4.70-6.10)
[2018-11-21 09:37] LABS: PLATELET MORPHOLOGY COMMENT NORMAL MORPHOLOGY (NORM); RBC MORPHOLOGY COMMENT NORMAL MORPHOLOGY (NORM); WBC MORPHOLOGY COMMENT NORMAL MORPHOLOGY (NORM)
[2018-11-21 09:39] LABS: VENOUS PH 7.38 (7.32-7.42)
[2018-11-21 09:43] LABS: BUN/CREATININE RATIO 30.71 (6-20); SERUM ALBUMIN 4.2 g/dL (3.5-4.8)
[2018-11-21] MEDS ORDERED: IPRATROPIUM/ALBUTEROL SULFATE 3 ML NEB NEB ONE (10:23)
--- NOTE | 2018-11-21 10:39 | DI ---
AP /LATERAL CHEST, 11/21/2018 9:22 AM : Clinical History: Dyspnea. Previous Exam: None at this facility. Soft Tissues: No acute soft tissue abnormality. The patient is very morbidly obese. This detracts fro m the overall quality and significantly limits the diagnostic quality of the exam with respect to sma ll or fine detail structures. Bones: Grossly normal. Motion artifacts are present. Heart: Cardiomegaly. CHF is felt not to be present but fine detail is lacking. There is a dual-chambe r pacemaker present. An additional lead is situated over the left ventricle. Lungs: No infiltrates. Effusion(s): None. Mediastinum: Normal mediastinum. Nodules: Cannot be adequately evaluated for nodules. Readin. Technically difficult exam to interpret because of the artifacts. 2. Cardiomegaly. CHF is probably not present. No acute infiltrates.
[2018-11-21] MEDS ORDERED: FUROSEMIDE 10 MG/1 ML - 4 ML IVP ONE (10:43)
[2018-11-21 11:13] LABS: BILIRUBIN,URINE NEGATIVE (NEG); CLARITY,URINE CLEAR (CLEAR); COLOR,URINE YELLOW (Y); GLUCOSE, URINE (UA) NEGATIVE (NEG); OCCULT BLOOD,URINE NEGATIVE (NEG); PH,URINE 5.5 (5.0-8.5); PROTEIN,URINE NEGATIVE (NEG); UROBILINOGEN,URINE 0.2 EU/dL (0.2)
[2018-11-21 11:21] LABS: RBC,URINE 0 /hpf; SQUAMOUS EPITHELIAL CELL,UR RARE; URINE SAMPLE TYPE CLEAN CATCH URINE; WBC,URINE 15-20
[2018-11-21 11:22] LABS: BACTERIA,URINE MANY; URINE CASTS FEW
[2018-11-21] MEDS ORDERED: ONDANSETRON 4 MG/2 ML VIAL IVP PRN (11:47)
[2018-11-21] MEDS ORDERED: LIDOCAINE W/ SODIUM BICARB 0.5 ML SYR SUBD PRN (11:47)
[2018-11-21] MEDS ORDERED: CALCIUM CARBONATE 500 MG (TUMS) CHEWABLE TABLET PO PRN (11:47)
[2018-11-21] MEDS ORDERED: DOCUSATE 100 MG CAPSULE PO PRN (11:47)
[2018-11-21] MEDS ORDERED: ACETAMINOPHEN 325 MG TABLET PO PRN (11:47)
[2018-11-21] MEDS ORDERED: LIDOCAINE HCL 2 % 10 ML JELLY URO-JECT TOPICAL PRN (11:47)
[2018-11-21] MEDS ORDERED: NYSTATIN 15 GM POWDER TOPICAL PRN (13:04)
--- NOTE | 2018-11-21 17:49 | PDOC ---
HPI - History of Present Illness Date of Service: 11/21/18 Time of Service: 14:30 Chief Complaint: short of breath History of Present Illness: This is a 63 YO with morbid obesity, probable NADIRA, non-ischemic cardiomyopathy with pacer and AICD, cor pulmonale, suspected DMII (but HbA1c all less than 6 over past 18 months), who presents with worsening shortness of breath. He denies fevers, chills, cough, or chest pain with these symptoms. Shortness of breath started about 4 days ago and the patient noted he was waking up abruptly at night on a frequent basis, gasping for air and in a panic. He had this happen in the past and was found to be in acute cor pulmonale at that time, sent to [place], and he got his AICD and pacemaker at that time. He states he is urinating okay and is taking lasix. He states he is on oxygen. He has never done a sleep study. He has noted he has gained a lot of weight lately and his legs are swelling. Past Medical History Medical History: 1. Morbid obesity. 2. Osteoarthritis in the knees. 3. Hypertension. 4. Hypercholesterolemia. 5. Tobacco abuse, smokeless tobacco (chews). 6. Obstructive sleep apnea. 7. cor pulmonale. 8. non ischemic dilated cardiomyopathy s/p AICD. 9. vitamin D deficiency Surgical History: 1. Had a knee surgery in the past. 2. pacemaker/AICD Pertinent Family History: Father of cancer. Patient states his mother of old age. Past Social History: Does not smoke or drink, but did in the past and quit. 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 Not , no kids. Tobacco Use: Former Smoker In the Past 12 Months, Have Used or Abuse Any of the Following Substance: None Alcohol Use: None Medication / Allergies Home Medications: Home Medications Medication Instructions Recorded Confirmed Type Cholecalciferol (Vitamin D3) 400 unit PO DAILY 10/09/15 11/21/18 History [Vitamin D3] Aspirin [Aspir 81] 81 mg PO DAILY tab 06/05/16 11/21/18 History Metformin HCl 1 tab PO BID #180 tab 09/21/16 12/19/16 Clinic Spironolactone 1 tab PO DAILY tab 11/09/16 11/21/18 History Grape Seed Extract 50 mg PO BID #0 cap 12/27/16 11/21/18 Rx Melatonin 10 mg PO QHS #60 tab 12/28/16 11/21/18 Rx Oxygen (O2) 1 l GERRY QHS #2 unit 02/12/17 11/21/18 Clinic metformin 1,000 mg tablet 1,000 mg PO BID #180 tab 10/24/17 11/21/18 Clinic amiodarone 200 mg tablet 200 mg PO DAILY #90 tab 12/10/17 11/21/18 Rx warfarin 5 mg tablet 5 mg PO QDAY #30 tab 03/03/18 11/21/18 Rx carvedilol 12.5 mg tablet 12.5 mg PO BID #30 tab 06/03/18 11/21/18 Rx atorvastatin 40 mg tablet 40 mg PO QHS #90 tab 07/30/18 11/21/18 Rx losartan 25 mg tablet 25 mg PO DAILY #90 tab 08/05/18 11/21/18 Rx furosemide 40 mg tablet See Rx Instructions .ROUTE 08/26/18 11/21/18 Rx .COMPLEX #60 tablet potassium chloride ER 20 mEq 10 meq PO BID #90 tab 10/08/18 11/21/18 Rx tablet,extended release(part/cryst) celecoxib 200 mg capsule 200 mg PO QDAY #90 cap 11/18/18 11/21/18 Rx Amiodarone HCl 200 mg PO DAILY 11/21/18 11/21/18 History Allergies/Adverse Reactions: Allergies Allergy/AdvReac Type Severity Reaction Status Date / Time No Known Allergies Allergy Verified 11/21/18 11:53 Review of Systems - Review of Systems All Systems: Reviewed & No Additional Complaints Except as Stated (I did a 12 po int review of systems and it was negative except as state in HPI.) Exam - Vitals Vital Signs: Vital Signs Temperature 97.2 F Temperature Source Temporal Artery Scan Pulse Rate [Pulse Oximeter] 64 Pulse Rate 70 Respiratory Rate 22 Blood Pressure [Left Arm] 144/74 Pulse Ox 95 Oxygen Flow Rate 2 Oxygen Delivery Method Nasal Cannula Height 5 ft 8 in Weight 427 lb 12.8 oz - General General Appearance: No Acute Distress, Cooperative, Morbidly Obese - Head Head Exam: Normal Inspection, Normocephalic, Atraumatic - Eye Eye Exam: POSITIVE: No Scleral Icterus - ENT ENT Exam: POSITIVE: Mucous Membranes Moist - Neck Neck Exam: Normal Inspection, No Tenderness, No Lymphadenopathy, No Thyromegaly, JVP is not Raised - Respiratory Respiratory Exam: POSITIVE: Clear to Auscultation - Bilaterally, Breathing Non Labored - Cardiovascular Cardiovascular Exam: POSITIVE: RRR, No Murmur, No Clicks, No Gallops, No Rubs, No JVD - GI/Abdominal GI/Abdominal Exam: POSITIVE: Normal Bowel Sounds, Non Tender, Non Distended, Soft - Rectal Rectal Exam: POSITIVE: Deferred - External Exam: POSITIVE: Deferred Exam: POSITIVE: Deferred - Extremities Extremities Exam: POSITIVE: No Clubbing Present, No Cyanosis Present, +3 Edema - Neurological Neurological Exam: POSITIVE: Alert, Oriented x 3, No Facial Droop, Speech Intact / Clear, Moves All Extremities Equally - Psychiatric Psychiatric Exam: POSITIVE: Normal Affect, Normal Mood Results - Labs CBC and BMP: 11/21/18 09:31 11/21/18 09:31 Additional Lab Results: Laboratory Results 11/21/18 11/21/18 11/21/18 09:30 09:31 09:31 WBC RBC Hgb Hct MCV MCH MCHC RDW Std Deviation RDW Coeff of Yaerd Plt Count MPV Immature Gran % (Auto) Neut % (Auto) Lymph % (Auto) Taylor % (Auto) Eos % (Auto) Baso % (Auto) Immature Gran # (Auto) Neut # (Auto) Lymph # (Auto) Taylor # (Auto) Eos # (Auto) Baso # (Auto) WBC Morphology Comment Plt Morphology Comment RBC Morph Comment D-Dimer 0.34 VBG pH 7.38 VBG pCO2 49 VBG HCO3 29 H VBG Base Excess 4 H Sodium Potassium Chloride Carbon Dioxide Anion Gap BUN Creatinine Estimated GFR BUN/Creatinine Ratio Glucose Calculated Osmolality Lactic Acid 1.8 Calcium Total Bilirubin AST ALT Alkaline Phosphatase Troponin I C-Reactive Protein NT-Pro-B Natriuret Pep Total Protein Albumin Globulin Albumin/Globulin Ratio Ur Collection Type Urine Color Urine Clarity Urine pH Ur Specific [place] Urine Protein Urine Glucose (UA) Urine Ketones Urine Occult Blood Urine Nitrate Urine Bilirubin Urine Urobilinogen Ur Leukocyte Esterase Urine RBC Urine WBC Ur Squamous Epith Cells Ur Renal Epithelial Cell Urine Crystals Urine Bacteria Urine Casts Urine Mucus Urine Trichomonas Urine Yeast Ur Culture Indicated? 11/21/18 11/21/18 11/21/18 09:31 09:31 09:31 WBC 8.85 RBC 4.76 Hgb 14.6 Hct 44.0 MCV 92.4 H MCH 30.7 MCHC 33.2 RDW Std Deviation 47.6 RDW Coeff of Yared 14.3 Plt Count 211 MPV 10.8 Immature Gran % (Auto) 0.2 Neut % (Auto) 67.9 Lymph % (Auto) 19.1 Taylor % (Auto) 9.7 Eos % (Auto) 2.6 Baso % (Auto) 0.5 Immature Gran # (Auto) 0.02 Neut # (Auto) 6.01 Lymph # (Auto) 1.69 Taylor # (Auto) 0.86 H Eos # (Auto) 0.23 Baso # (Auto) 0.04 WBC Morphology Comment Normal morphology Plt Morphology Comment Normal morphology RBC Morph Comment Normal morphology D-Dimer VBG pH VBG pCO2 VBG HCO3 VBG Base Excess Sodium Potassium Chloride Carbon Dioxide Anion Gap BUN Creatinine Estimated GFR BUN/Creatinine Ratio Glucose Calculated Osmolality Lactic Acid Calcium Total Bilirubin AST ALT Alkaline Phosphatase Troponin I 0.020 C-Reactive Protein 0.9 NT-Pro-B Natriuret Pep 660 H Total Protein Albumin Globulin Albumin/Globulin Ratio Ur Collection Type Urine Color Urine Clarity Urine pH Ur Specific [place] Urine Protein Urine Glucose (UA) Urine Ketones Urine Occult Blood Urine Nitrate Urine Bilirubin Urine Urobilinogen Ur Leukocyte Esterase Urine RBC Urine WBC Ur Squamous Epith Cells Ur Renal Epithelial Cell Urine Crystals Urine Bacteria Urine Casts Urine Mucus Urine Trichomonas Urine Yeast Ur Culture Indicated? 11/21/18 11/21/18 09:31 11:06 WBC RBC Hgb Hct MCV MCH MCHC RDW Std Deviation RDW Coeff of Yared Plt Count MPV Immature Gran % (Auto) Neut % (Auto) Lymph % (Auto) Taylor % (Auto) Eos % (Auto) Baso % (Auto) Immature Gran # (Auto) Neut # (Auto) Lymph # (Auto) Taylor # (Auto) Eos # (Auto) Baso # (Auto) WBC Morphology Comment Plt Morphology Comment RBC Morph Comment D-Dimer VBG pH VBG pCO2 VBG HCO3 VBG Base Excess Sodium 139 Potassium 4.3 Chloride 101 Carbon Dioxide 28 Anion Gap 10 BUN 43 H Creatinine 1.4 Estimated GFR 51 BUN/Creatinine Ratio 30.71 H Glucose 109 Calculated Osmolality 299.0 H Lactic Acid Calcium 9.4 Total Bilirubin 0.5 AST 43 ALT 33 Alkaline Phosphatase 133 H Troponin I C-Reactive Protein NT-Pro-B Natriuret Pep Total Protein 7.3 Albumin 4.2 Globulin 3.1 Albumin/Globulin Ratio 1.30 Ur Collection Type Clean catch urine Urine Color Yellow Urine Clarity Clear Urine pH 5.5 Ur Specific [place] 1.010 Urine Protein Negative Urine Glucose (UA) Negative Urine Ketones Negative Urine Occult Blood Negative Urine Nitrate Negative Urine Bilirubin Negative Urine Urobilinogen 0.2 Ur Leukocyte Esterase Small Urine RBC 0 Urine WBC 15-20 Ur Squamous Epith Cells Rare Ur Renal Epithelial Cell None Urine Crystals None Urine Bacteria Many H Urine Casts Few Urine Mucus Few Urine Trichomonas None Urine Yeast None Ur Culture Indicated? Culture set - EKG Data -: EKG Interpreted by Me - EKG Data EKG Interpretation: Other (paced rhythm) - Imaging Status: Image Reviewed by Me (chest X-ray I think reveals cardiomegaly on my view. no infiltrate.) Assessment and Plan - Patient Problems (1) Acute cor pulmonale Current Visit: Yes Status: Acute Code(s): I26.09 - Other pulmonary embolism with acute cor pulmonale (2) Atrial fibrillation Current Visit: Yes Status: Chronic Code(s): I48.91 - Unspecified atrial fibr illation Qualifiers: Atrial fibrillation type: chronic Qualified Code(s): I48.2 - Chronic atrial fibrillation (3) Benign essential hypertension Current Visit: Yes Status: Chronic Onset Date: 08/15/12 Code(s): I10 - Ess ential (primary) hypertension (4) Chronic systolic CHF (congestive heart failure), NYHA class 3 Current Visit: Yes Status: Chronic Onset Date: 03/01/17 Code(s): I50.22 - Chronic systolic (congestive) heart failure (5) Hyperlipidemia Current Visit: Yes Status: Chronic Qualifiers: Hyperlipidemia type: pure hypercholesterolemia Qualified Code(s): E78.00 - Pure hypercholesterolemia, unspecified; E78.0 - Pure hypercholesterolemia (6) Status post cardiac pacemaker procedure Current Visit: Yes Status: Chronic - Assessment / Plan Additional Assessment/Plan Details: admit the patient lasix gtt stop metformin--contraindicated in setting of depressed ejection fraction, can lead to lactic acidosis. HbA1c are not reflective of diabetes, one outlier noted on review of labs replace potassium hold off spironolactone daily weights, strict I and O's monitor INR on coumadin labs in AM diet, diet, diet--we discussed this in depth/veggies full code plan discussed with patient and he agrees I was able to get an ECHO done today, results are pending.
[2018-11-21] MEDS: CARVEDILOL 12.5 MG TABLET PO SCH (20:11)
[2018-11-21] MEDS: Warfarin 5 MG TAB PO SCH (20:11)
[2018-11-21] MEDS: MELATONIN 5 MG TABLET PO SCH (20:11)
[2018-11-21] MEDS: POTASSIUM CHLORIDE 20 MEQ TAB PO SCH (20:11)
[2018-11-21] MEDS: ATORVASTATIN 40 MG TABLET PO SCH (20:11)
--- NOTE | 2018-11-21 21:00 | PDOC ---
Dyspnea HPI - General Chief Complaint: Respiratory Complaint Stated Complaint: difficulty breathing Date Seen by Provider: 11/21/18 Time Seen by Provider: 09:10 Source: POSITIVE: Patient, EMS Exam Limitations: POSITIVE: No limitations Treatment Prior to Arrival: REPORTS: Oxygen, Albuterol Neb Treatment Nurse's Notes Reviewed & Considered: Yes EMS Report Reviewed & Considered: Verbal - History of Present Illness Initial Comments: The patient is a 63-year-old male who is brought to the emergency room by ambulance. He complains of progressive dyspnea for the last 3-4 days, es pecially at night. He states he has on oxygen supplementation at night. He states that recently when he doses off he "wakes up" in a manner suggestive of sleep apnea. Patient has a history of bradycardia and he has a pacemaker defibrillator inserted. He states he has a history of congestive heart failure. No known myocardial infarctions. No fevers or chills. No chest pain. No cough. He has morbidly obese and gives his weight is 410 pounds. He has had progressive pedal edema over the last several days. Body Location Affected: REPORTS: Lower Extremity (L) (Pedal edema), Lower Extremity (R) (Pedal edema), Chest (Dyspnea) Timing: REPORTS: Gradual, Getting Worse Duration: >24 hours (3-4 days) Severity: Moderate Quality: REPORTS: Other (Patient denies any chest or other pain) Initiating Event: DENIES: Upper Respiratory Illness, Out of Medications, Sports, Exercise, Aspiration, Choking, Allergy, Exposure - Smoke, Exposure - Mold, Exp osure - Other Allergen Context: REPORTS: Sleep (Worse when trying to sleep) Exacerbated By: REPORTS: Laying Flat Associated Symptoms: REPORTS: Ankle Swelling. DENIES: Fever, Chills, Sweating, Chest Pain, Chest Discomfort, Left Chest, Right Chest, Central Chest, Chest Heaviness, Chest Tightness, Painful Breathing, Radiation to Back, Radiation to Jaw, Radiation to Arm, Bloody Cough, Productive Cough, Heart Racing, Leg Pain, Calf Pain, Leg Swelling, Dizziness, Light-Headedness, Anxiety, Tingling - Hands, Tingling - Face, Muscle Spasms - Hands, Muscle Spasms - Feet Similar Symptoms Previously: Yes Recently seen/treated/hospitalized: No Any Prior Injuries Related to Current Complaint?: No - Patient Home Medications Home Medications: Home Medications Cholecalciferol (Vitamin D3) [Vitamin D3] 400 unit PO DAILY 10/09/15 Aspirin [Aspir 81] 81 mg PO DAILY tab 06/05/16 Metformin HCl 1 tab PO BID #180 tab 09/21/16 Spironolactone 1 tab PO DAILY tab 11/09/16 Grape Seed Extract 50 mg PO BID #0 cap 12/27/16 Melatonin 10 mg PO QHS #60 tab 12/28/16 Oxygen (O2) 1 l GERRY QHS #2 unit 02/12/17 metformin 1,000 mg tablet 1,000 mg PO BID #180 tab 10/24/17 amiodarone 200 mg tablet 200 mg PO DAILY #90 tab 12/10/17 warfarin 5 mg tablet 5 mg PO QDAY #30 tab 03/03/18 carvedilol 12.5 mg tablet 12.5 mg PO BID #30 tab 06/03/18 atorvastatin 40 mg tablet 40 mg PO QHS #90 tab 07/30/18 losartan 25 mg tablet 25 mg PO DAILY #90 tab 08/05/18 furosemide 40 mg tablet See Rx Instructions .ROUTE .COMPLEX #60 tablet 08/26/18 potassium chloride ER 20 mEq tablet,extended release(part/cryst) 10 meq PO BID #90 tab 10/08/18 celecoxib 200 mg capsule 200 mg PO QDAY #90 cap 11/18/18 Amiodarone HCl 200 mg PO DAILY 11/21/18 - Patient Allergies Allergies/Adverse Reactions: Allergies Allergy/AdvReac Type Severity Reaction Status Date / Time No Known Allergies Allergy Verified 11/21/18 11:53 Past Medical History - heen HEENT History: Denies History Additional HEENT History: glasses for reading Cardiovascular History: Hypertension, Hyperlipidemia Additional Cardiovasular History: pacer/defib Respiratory History: Denies History, Home Oxygen Use Additional Respiratory History: night 2 liter Gastrointestinal History: Denies History Genitourinary History: Denies History Endocrine History: Type 2 Diabetes (oral) Musculoskeletal History: Denies History Prosthesis or Implant: No Neurological History: Denies History Blood Disorders: Denies History Additional Blood Disorders History: coumadin for cardiac hx Psychiatric History: Denies History History of Sexually Transmitted Diseases: No Male Reproductive History: Denies History Cancer History: Denies History In Past Year Been Physically Harmed or Verbally Threatened: No History of MDRO: No History of Other Communicable Diseases: No Tobacco Use: Former Smoker Alcohol Use: Rarely In the Past 12 Months, Have Used or Abuse Any Substance: None Previous Surgical History: Yes Type / Date of Surgery: KNEE IN 70'S Anesthesia Reactions: No Malignant Hyperthermia: No Significant Family History: Cancer, Diabetes, Hypertension Past Medical History Reviewed: Reviewed - No Changes ROS - Limitations ROS Limitations: No Limitations Constitution: REPORTS: Denies Symptoms Cardiovascular: REPORTS: Denies Cardiac Symptoms Respiratory: REPORTS: Shortness Of Breath Neurological: REPORTS: Denies Neuro Symptoms Gastrointestinal: REPORTS: Denies GI Symptoms Endocrine: REPORTS: Denies Symptoms Musculoskeletal: REPORTS: Denies MS Symptoms Genitourinary: REPORTS: Denies Symptoms Eyes: REPORTS: Denies Symptoms ENT: REPORTS: Denies Symptoms Skin: REPORTS: Denies Skin Symptoms Lympathic: REPORTS: Denies Lympathic Symptoms Immunologic: POSITIVE: Denies Symptoms Psychiatric: POSITIVE: Denies Psych Symptoms Dyspnea Physical Exam - General Appearance General Appearance: REPORTS: Alert, Cooperative, No Acute Distress, No Evidence of Trauma - HEENT HEENT: POSITIVE: Head Inspection Nml, Eyes Inspection Nml, Ears Inspection Nml, Nose Inspection Nml, Oral/Dental Inspect. Nml, Pharynx Inspect. Nml, PERRL, EOMI - Neck Neck: REPORTS: Normal Inspection, No Carotid Bruit - Respiratory Respiratory: REPORTS: No Respiratory Distress, No Pleuritic Chest Pain, Speaks Full Sentences, No Pain on Inspiration, Rales (Scattered both lung bases). DENIES: Breath Sounds Normal (Scattered rales at both lung bases), Respiratory Distress, Fatigue, Wheezes, Rhonchi, Prolonged Expirations, Accessory Muscle Use, Retractions, Splinting, Dull on Percussion, Decreased Air Movement, Chest Wall Tenderness, Speaks Broken Sentences, Stridor, Respiratory Failure - Cardiovascular Cardiovascular: REPORTS: Regular Rate and Rhythm, Heart Sounds Normal, Equal Pulses, Strong Pulses, No Murmur, No Gallop, No Friction Rub, No JVD Peripheral Pulses: Radial (R): 2+, Radial (L): 2+, Dorsalis-pedis (R): 2+, Dorsalis-pedis (L): 2+ - Abdomen Abdomen: Soft: (All Quadrants), Normal Bowel Sounds: (All Quadrants), Denies Tenderness: (All Quadrants), No Splenomegaly: (All Quadrants), No Hepatomegaly: (All Quadrants), No Guarding: (All Quadrants), No Rebound: (All Quadrants), No Palpable Pulse: (All Quadrants), No Palpabale Mass: (All Quadrants), No Distention: (All Quadrants), No Rigidity: (All Quadrants) - Skin Skin: REPORTS: Intact, Normal For Race, Warm, Dry, No Rash - Extremities Extremity: Non-Tender: (All Extremities), Normal ROM: (All Extremities), Normal Inspection: (All Extremities), Edema / Swelling: (RLE), (LLE) - Neurological / Psychological Neurological: POSITIVE: 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 Lab Results Reviewed by Me: Yes (BNP 660) CBC and BMP: 11/21/18 09:31 11/21/18 09:31 Lab Results:: Laboratory Results 11/21/18 11/21/18 11/21/18 09:30 09:31 09:31 WBC RBC Hgb Hct MCV MCH MCHC RDW Std Deviation RDW Coeff of Yared Plt Count MPV Immature Gran % (Auto) Neut % (Auto) Lymph % (Auto) [place] % (Auto) Eos % (Auto) Baso % (Auto) Immature Gran # (Auto) Neut # (Auto) Lymph # (Auto) [place] # (Auto) Eos # (Auto) Baso # (Auto) WBC Morphology Comment Plt Morphology Comment RBC Morph Comment D-Dimer 0.34 VBG pH 7.38 VBG pCO2 49 VBG HCO3 29 H VBG Base Excess 4 H Sodium Potassium Chloride Carbon Dioxide Anion Gap BUN Creatinine Estimated GFR BUN/Creatinine Ratio Glucose Calculated Osmolality Lactic Acid 1.8 Calcium Total Bilirubin AST ALT Alkaline Phosphatase Troponin I C-Reactive Protein NT-Pro-B Natriuret Pep Total Protein Albumin Globulin Albumin/Globulin Ratio Ur Collection Type Urine Color Urine Clarity Urine pH Ur Specific [place] Urine Protein Urine Glucose (UA) Urine Ketones Urine Occult Blood Urine Nitrate Urine Bilirubin Urine Urobilinogen Ur Leukocyte Esterase Urine RBC Urine WBC Ur Squamous Epith Cells Ur Renal Epithelial Cell Urine Crystals Urine Bacteria Urine Casts Urine Mucus Urine Trichomonas Urine Yeast Ur Culture Indicated? 11/21/18 11/21/18 11/21/18 09:31 09:31 09:31 WBC 8.85 RBC 4.76 Hgb 14.6 Hct 44.0 MCV 92.4 H MCH 30.7 MCHC 33.2 RDW Std Deviation 47.6 RDW Coeff of Yared 14.3 Plt Count 211 MPV 10.8 Immature Gran % (Auto) 0.2 Neut % (Auto) 67.9 Lymph % (Auto) 19.1 [place] % (Auto) 9.7 Eos % (Auto) 2.6 Baso % (Auto) 0.5 Immature Gran # (Auto) 0.02 Neut # (Auto) 6.01 Lymph # (Auto) 1.69 [place] # (Auto) 0.86 H Eos # (Auto) 0.23 Baso # (Auto) 0.04 WBC Morphology Comment Normal morphology Plt Morphology Comment Normal morphology RBC Morph Comment Normal morphology D-Dimer VBG pH VBG pCO2 VBG HCO3 VBG Base Excess Sodium Potassium Chloride Carbon Dioxide Anion Gap BUN Creatinine Estimated GFR BUN/Creatinine Ratio Glucose Calculated Osmolality Lactic Acid Calcium Total Bilirubin AST ALT Alkaline Phosphatase Troponin I 0.020 C-Reactive Protein 0.9 NT-Pro-B Natriuret Pep 660 H Total Protein Albumin Globulin Albumin/Globulin Ratio Ur Collection Type Urine Color Urine Clarity Urine pH Ur Specific [place] Urine Protein Urine Glucose (UA) Urine Ketones Urine Occult Blood Urine Nitrate Urine Bilirubin Urine Urobilinogen Ur Leukocyte Esterase Urine RBC Urine WBC Ur Squamous Epith Cells Ur Renal Epithelial Cell Urine Crystals Urine Bacteria Urine Casts Urine Mucus Urine Trichomonas Urine Yeast Ur Culture Indicated? 11/21/18 11/21/18 09:31 11:06 WBC RBC Hgb Hct MCV MCH MCHC RDW Std Deviation RDW Coeff of Yared Plt Count MPV Immature Gran % (Auto) Neut % (Auto) Lymph % (Auto) [place] % (Auto) Eos % (Auto) Baso % (Auto) Immature Gran # (Auto) Neut # (Auto) Lymph # (Auto) [place] # (Auto) Eos # (Auto) Baso # (Auto) WBC Morphology Comment Plt Morphology Comment RBC Morph Comment D-Dimer VBG pH VBG pCO2 VBG HCO3 VBG Base Excess Sodium 139 Potassium 4.3 Chloride 101 Carbon Dioxide 28 Anion Gap 10 BUN 43 H Creatinine 1.4 Estimated GFR 51 BUN/Creatinine Ratio 30.71 H Glucose 109 Calculated Osmolality 299.0 H Lactic Acid Calcium 9.4 Total Bilirubin 0.5 AST 43 ALT 33 Alkaline Phosphatase 133 H Troponin I C-Reactive Protein NT-Pro-B Natriuret Pep Total Protein 7.3 Albumin 4.2 Globulin 3.1 Albumin/Globulin Ratio 1.30 Ur Collection Type Clean catch urine Urine Color Yellow Urine Clarity Clear Urine pH 5.5 Ur Specific [place] 1.010 Urine Protein Negative Urine Glucose (UA) Negative Urine Ketones Negative Urine Occult Blood Negative Urine Nitrate Negative Urine Bilirubin Negative Urine Urobilinogen 0.2 Ur Leukocyte Esterase Small Urine RBC 0 Urine WBC 15-20 Ur Squamous Epith Cells Rare Ur Renal Epithelial Cell None Urine Crystals None Urine Bacteria Many H Urine Casts Few Urine Mucus Few Urine Trichomonas None Urine Yeast None Ur Culture Indicated? Culture set EKG Interpreted/Reviewed By Me:: Yes (pacer rhythm) EKG Interpretation:: POSITIVE: Abnormal EKG (Pacer rhythm) - Patient's Progress Pain Medication Addressed: POSITIVE: Not Applicable School/Work Release Addressed: POSITIVE: Not Applicable Re-Examine Time: 11:00 Re-Examine Comment: Patient given 40 mg of Lasix IV. Case discussed with hospitalist, and patient admitted for further evaluation and treatment. Status: POSITIVE: Unchanged, Re-Examined Air Movement: POSITIVE: Fair - Consult Consult (If Yes, Name of Consulting MD & Time Called): Yes (Dr. Foster, hospitalist, 1100) Consulting MD will see pt:: POSITIVE: [facility] [place] Admit Counseled: POSITIVE: Patient, RE: Lab Results, RE: Radiology Results, RE: DX, RE: Need for F/U Patient Care Time - Estimated PCT Patient Care Time (In Minutes): 50 Vital Signs - Recent Vital Signs Vital Signs: Vital Signs (Last 8 hours) Temp Pulse Resp BP BP Pulse Ox 11/21/18 20:20 97.4 F 66 20 138/61 94 11/21/18 19:00 93 11/21/18 17:00 97.9 F 75 20 140/81 93 11/21/18 15:00 95 - VS Reviewed Vital Signs Reviewed: Yes Discharge Clinical Impression: Congestive heart failure, Morbid obesity Discharge Disposition: Admit to Inpatient Condition: Fair Date Decision to Admit to Inpatient: 11/21/18 Time Decision to Admit to Inpatient: 11:00
[2018-11-22 05:31] LABS: BLOOD UREA NITROGEN 37 mg/dL (7-22); BUN/CREATININE RATIO 30.83 (6-20)
[2018-11-22] MEDS: ASPIRIN EC 81 MG TABLET PO SCH (08:46)
[2018-11-22] MEDS: CARVEDILOL 12.5 MG TABLET PO SCH ×2 (08:46→20:18)
[2018-11-22] MEDS: POTASSIUM CHLORIDE 20 MEQ TAB PO SCH ×2 (08:46→20:18)
[2018-11-22] MEDS: AMIODARONE 200 MG TABLET PO SCH (08:46)
[2018-11-22] MEDS: LOSARTAN 25 MG TABLET PO SCH (08:46)
[2018-11-22] MEDS: CHOLECALCIFEROL 1000 IU TABLET PO SCH (08:46)
[2018-11-22] MEDS ORDERED: POTASSIUM CHLORIDE 20 MEQ TAB PO ONE (09:17)
--- NOTE | 2018-11-22 12:01 | PDOC(PROG) ---
Interval History: Patient is doing a little better at the -1400 out. Denies chest pain nausea or vomiting Objective : Data - Labs CBC and BMP: 11/21/18 09:31 11/22/18 04:30 Objective : Exam - General General Appearance: Cooperative - Respiratory Respiratory Exam: Decreased Breath Sounds - GI/Abdominal GI/Abdominal Exam: Soft - Extremities Extremities Exam: +2 Edema Assessment and Plan - Patient Problems (1) Chronic systolic CHF (congestive heart failure), NYHA class 3 Current Visit: Yes Status: Chronic Onset Date: 03/01/17 Comment: Continue Lasix drip. 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 Eugenia Moses and his pacemaker. Continue diuresis most likely or right-sided heart failure and cor pulmonale echo was done and results are pending this will be read by the plating tank operator apprentice in [place] replace potassium and magnesium as needed continue other medications for other medical diagnoses Code(s): I50.22 - Chronic systolic (congestive) heart failure (2) Hyperlipidemia Current Visit: Yes Status: Chronic Qualifiers: Hyperlipidemia type: pure hypercholesterolemia Qualified Code(s): E78.00 - Pure hypercholesterolemia, unspecified; E78.0 - Pure hypercholesterolemia (3) Status post cardiac pacemaker procedure Current Visit: Yes Status: Chronic (4) Atrial fibrillation Current Visit: Yes Status: Chronic Code(s): I48.91 - Unspecified atrial fibrillation Qualifiers: Atrial fibrillation type: chronic Qualified Code(s): I48.2 - Chronic atrial fibrillation (5) Benign essential hypertension Current Visit: Yes Status: Chronic Onset Date: 08/15/12 Code(s): I10 - Essential (primary) hypertension (6) Acute cor pulmonale Current Visit: Yes Status: Acute Code(s): I26.09 - Other pulmonary embolism with acute cor pulmonale
[2018-11-22] MEDS ORDERED: cefTRIAXone Inj 2 GM in Sodium Chloride 0.9% 100 ML IV SCH (13:00)
[2018-11-22] MEDS ORDERED: Vancomycin Inj 1gm vial ONE (13:58)
[2018-11-22] MEDS: Warfarin 5 MG TAB PO SCH (20:18)
[2018-11-22] MEDS: MELATONIN 5 MG TABLET PO SCH (20:18)
[2018-11-22] MEDS: ATORVASTATIN 40 MG TABLET PO SCH (20:18)
[2018-11-22] MEDS ORDERED: POTASSIUM CHLORIDE 20 MEQ TAB PO SCH (21:00)
[2018-11-23 05:39] LABS: BUN/CREATININE RATIO 22.3 (6-20); SERUM ALBUMIN 4.4 g/dL (3.5-4.8)
[2018-11-23 06:29] VITALS: BP 134/80; RESP 12; TEMP 96.8
[2018-11-23 07:26] LABS: BASOPHILS # (AUTO) 0.04 10*3/UL; BASOPHILS % (AUTO) 0.5 % (0-1); EOSINOPHILS % (AUTO) 2.5 % (0-8); Hematocrit [HCT] 43.5 % (42.0-52.0); Hemoglobin [HGB] 14.8 g/dL (14.0-18.0); LYMPHOCYTES # (AUTO) 1.76 10*3/uL; MEAN CORPUSCULAR HEMOGLOBIN 31.6 PG (27-31); MEAN CORPUSCULAR VOLUME 92.8 FL (80-90); MONOCYTES # (AUTO) 0.68 10*3/UL (0.3-0.8); MONOCYTES % (AUTO) 8.4 % (5-15); NEUTROPHILS # (AUTO) 5.45 10*3/UL; NEUTROPHILS % (AUTO) 66.9 % (50-80); RED BLOOD COUNT 4.69 10^6/uL (4.70-6.10)
[2018-11-23 07:34] LABS: PLATELET MORPHOLOGY COMMENT NORMAL MORPHOLOGY (NORM); RBC MORPHOLOGY COMMENT NORMAL MORPHOLOGY (NORM); WBC MORPHOLOGY COMMENT NORMAL MORPHOLOGY (NORM)
[2018-11-23] MEDS: AMIODARONE 200 MG TABLET PO SCH (09:24)
[2018-11-23] MEDS: CARVEDILOL 12.5 MG TABLET PO SCH (09:25)
[2018-11-23] MEDS: ASPIRIN EC 81 MG TABLET PO SCH (09:25)
[2018-11-23] MEDS: LOSARTAN 25 MG TABLET PO SCH (09:25)
[2018-11-23] MEDS: CHOLECALCIFEROL 1000 IU TABLET PO SCH (09:25)
[2018-11-23] MEDS: POTASSIUM CHLORIDE 20 MEQ TAB PO SCH (09:25)
--- NOTE | 2018-11-23 09:28 | PDOC(PROG) ---
Interval History: Patient is still short of breath. Denies chest pain no nausea or vomiting nice dysuria or hematuria Objective : Data - Labs CBC and BMP: 11/23/18 05:20 11/23/18 05:20 Objective : Exam - General General Appearance: No Acute Distress, Cooperative - Respiratory Respiratory Exam: Decreased Breath Sounds - Cardiovascular Cardiovascular Exam: RRR, No Murmur, No Clicks, No Gallops, No Rubs, PMI Non- Displaced - GI/Abdominal GI/Abdominal Exam: Normal Bowel Sounds, Non Tender, Non Distended, Soft, No Masses, No Hepatomegaly, No Splenomegaly, No Organomegaly - Extremities Extremities Exam: +3 Edema Assessment and Plan - Patient Problems (1) Chronic systolic CHF (congestive heart failure), NYHA class 3 Current Visit: Yes Status: Chronic Onset Date: 03/01/17 Comment: Patient refuses Hanks, Lasix drip really not the working as a issue for this patient will switch over to IV Lasix 40 twice a day. He would prefer it. He does have acute cor pulmonale congestive heart failure echo results are pending I will order a CT scan of his chest rule out PE. Code(s): I50.22 - Chronic systolic (congestive) heart failure (2) Hyperlipidemia Current Visit: Yes Status: Chronic Qualifiers: Hyperlipidemia type: pure hypercholesterolemia Qualified Code(s): E78.00 - Pure hypercholesterolemia, unspecified; E78.0 - Pure hypercholesterolemia (3) Status post cardiac pacemaker procedure Current Visit: Yes Status: Chronic (4) Atrial fibrillation Current Visit: Yes Status: Chronic Comment: On Coumadin Code(s): I48.91 - Unspecified atrial fibrillation Qualifiers: Atrial fibrillation type: chronic Qualified Code(s): I48.2 - Chronic atrial fibrillation (5) Benign essential hypertension Current Visit: Yes Status: Chronic Onset Date: 08/15/12 Code(s): I10 - Essential (primary) hypertension (6) Acute cor pulmonale Current Visit: Yes Status: Acute Code(s): I26.09 - Other pulmonary embolism with acute cor pulmonale (7) Gram-positive cocci bacteremia Current Visit: Yes Status: Acute Code(s): R78.81 - Bacteremia (8) UTI (urinary tract infection) Current Visit: Yes Status: Acute Code(s): N39.0 - Urinary tract infection, site not specified - Assessment / Plan Additional Assessment/Plan Details: One of his blood cultures are positive for gram-positive cocci this could be a contaminant nevertheless I did start vancomycin considering his AICD and obesity might need a transesophageal echo
[2018-11-23] MEDS ORDERED: Vancomycin Inj 1gm vial ONE (09:43)
--- NOTE | 2018-11-23 09:43 | DCSUMMARY ---
Hospitalization Summary Hospital Course: Final Discharge Diagnosis: Current Visit Problems Problem Status Onset Code Acute cor pulmonale Acute I26.09 Congestive heart failure Acute I50.9 Morbid obesity Acute E66.01 Gram-positive cocci bacteremia Acute R78.81 UTI (urinary tract infection) Acute N39.0 Chronic systolic CHF (congestive heart failure), NYHA class 3 Chronic 03/01/17 I50.22 Benign essential hypertension Chronic 08/15/12 I10 Atrial fibrillation Chronic I48.91 Status post cardiac pacemaker procedure Chronic Hyperlipidemia Chronic Diagnostic Data, Laboratory Data, and Procedures of Signifigance: Laboratory Results 11/23/18 11/23/18 11/23/18 05:20 05:20 05:20 WBC 8.14 RBC 4.69 L Hgb 14.8 Hct 43.5 MCV 92.8 H MCH 31.6 H MCHC 34.0 RDW Std Deviation 47.8 RDW Coeff of Yared 14.3 Plt Count 210 MPV 11.0 Immature Gran % (Auto) 0.1 Neut % (Auto) 66.9 Lymph % (Auto) 21.6 [place] % (Auto) 8.4 Eos % (Auto) 2.5 Baso % (Auto) 0.5 Immature Gran # (Auto) 0.01 Neut # (Auto) 5.45 Lymph # (Auto) 1.76 [place] # (Auto) 0.68 Eos # (Auto) 0.20 Baso # (Auto) 0.04 WBC Morphology Comment Normal morphology Plt Morphology Comment Normal morphology RBC Morph Comment Normal morphology PT 20.7 H INR 2.15 Sodium 139 Potassium 3.8 Chloride 100 Carbon Dioxide 29 Anion Gap 10 BUN 29 H Creatinine 1.3 Estimated GFR 56 BUN/Creatinine Ratio 22.30 H Glucose 123 H Calculated Osmolality 294.0 H Calcium 9.1 Total Bilirubin 0.7 AST 41 ALT 39 Alkaline Phosphatase 141 H Total Protein 7.7 Albumin 4.4 Globulin 3.3 Albumin/Globulin Ratio 1.30 History and Physical pertinent to Admission: This is a 63 YO with morbid obesity, probable NADIRA, non-ischemic cardiomyopathy with pacer and AICD, cor pulmonale, suspected DMII (but HbA1c all less than 6 over past 18 months), who presents with worsening shortness of breath. He den ies fevers, chills, cough, or chest pain with these symptoms. Shortness of breath started about 4 days ago and the patient noted he was waking up abruptly at night on a frequent basis, gasping for air and in a panic. He had this happen in the past and was found to be in acute cor pulmonale at that time, sent to [place], and he got his AICD and pacemaker at that time. He states he is urinating okay and is taking lasix. He states he is on oxygen. He has never done a sleep study. He has noted he has gained a lot of weight lately and his legs are swelling. Past Medical History Medical History: 1. Morbid obesity. 2. Osteoarthritis in the knees. 3. Hypertension. 4. Hypercholesterolemia. 5. Tobacco abuse, smokeless tobacco (chews). 6. Obstructive sleep apnea. 7. cor pulmonale. 8. non ischemic dilated cardiomyopathy s/p AICD. 9. vitamin D deficiency Surgical History: 1. Had a knee surgery in the past. 2. pacemaker/AICD Pertinent Family History: Father of cancer. Patient states his mother of old age. Past Social History: Does not smoke or drink, but did in the past and quit. 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 Not , no kids. Tobacco Use: Former Smoker Course of Hospitalization: Is a very nice 63-year-old gentleman with morbid obesity, nonischemic cardiomyopathy with pacer and AICD, cor pulmonale, suspected diabetes but hemoglobin A1c is less than 6 over the past 18 months. He also has a history of A. fib and is on Coumadin for anticoagulation. 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 Bello in [place]. Presented to the ER on 3:15 with increased shortness of breath over the last 4 days previous to admission and the increased swelling in the lower extremities. Patient on admission denied any UTI symptoms he has never done a sleep study. And he has gained the lots of weight recently. In the hospital he was started on Lasix drip without much diuresis may be 1500 out total. He refused Hanks catheter. Yesterday one of his blood cultures came back gram- positive cocci and vancomycin was started. Considering his battery habitus for needing possible CT scan of his chest. Patient is on Coumadin for his A. fib and positive for gram-positive cocci blood culture will need infectious disease for further determination and therapy. Most likely I will also need to cardiology for his acute cor pulmonale because of poor diuresis. And possible KENDRA because of his blood culture. I discussed the case with Dr. Rico in the emergency room which accepted the patient she said this was more appropriate for direct admit she will talk to the hospitalist On the date of discharge, the patient was examined: Gen.: No acute distress, alert, nontoxic Heart: Regular rate and rhythm, no murmurs, clicks, gallops, or rubs Lungs: Clear to auscultation bilaterally, breathing is nonlabored Abdomen/GI: Normal tones on auscultation, soft, nontender, nondistended Musculoskeletal/extremities: No clubbing, cyanosis, or edema Vitals reviewed and are listed below Vital Signs (24 hrs) 11/22/18 11:00 11/22/18 13:00 11/22/18 14:50 Temperature 97.8 F Pulse Rate 63 Pulse Rate Pulse Oximeter 75 Respiratory Rate 20 Blood Pressure Left Arm Blood Pressure Left Radial Artery 115/75 Pulse Ox 92 93 96 11/22/18 15:00 11/22/18 17:00 11/22/18 19:00 Temperature 97.3 F Pulse Rate 72 66 Pulse Rate Pulse Oximeter 49 L 84 Respiratory Rate 20 20 Blood Pressure Left Arm Blood Pressure Left Radial Artery 110/71 Pulse Ox 96 96 11/22/18 21:00 11/22/18 23:00 11/23/18 00:58 Temperature 97.5 F 97.6 F Pulse Rate Pulse Rate Pulse Oximeter 74 64 Respiratory Rate 20 16 Blood Pressure Left Arm 129/79 120/78 Blood Pressure Left Radial Artery Pulse Ox 96 95 93 11/23/18 03:00 11/23/18 05:00 11/23/18 05:29 Temperature 97.4 F Pulse Rate 67 Pulse Rate Pulse Oximeter 61 Respiratory Rate Blood Pressure Left Arm 128/89 Blood Pressure Left Radial Artery Pulse Ox 97 92 96 11/23/18 06:24 11/23/18 06:29 11/23/18 07:00 Temperature 96.8 F Pulse Rate Pulse Rate Pulse Oximeter 62 Respiratory Rate 12 12 Blood Pressure Left Arm Blood Pressure Left Radial Artery 134/80 Pulse Ox 94 95 Assessment and Plan: 1. As per discharge assessments above 2. Disposition: [facility] 3. Condition on discharge, stable and improved. 4. Diet: regular diet 5. Activities: resume normal activities 6. Follow-Up: 1. PCP 2. 7. Medications at the Time of Discharge: Home Medications Medication Instructions Recorded Confirmed Type Cholecalciferol (Vitamin D3) 400 unit PO DAILY 10/09/15 11/21/18 History Vitamin D3 Aspirin Aspir 81 81 mg PO DAILY tab 06/05/16 11/21/18 History Metformin HCl 1 tab PO BID #180 tab 09/21/16 12/19/16 Clinic Spironolactone 1 tab PO DAILY tab 11/09/16 11/21/18 History Grape Seed Extract 50 mg PO BID #0 cap 12/27/16 11/21/18 Rx Melatonin 10 mg PO QHS #60 tab 12/28/16 11/21/18 Rx Oxygen (O2) 1 l GERRY QHS #2 unit 02/12/17 11/21/18 Clinic metformin 1,000 mg tablet 1,000 mg PO BID #180 tab 10/24/17 11/21/18 Clinic amiodarone 200 mg tablet 200 mg PO DAILY #90 tab 12/10/17 11/21/18 Rx warfarin 5 mg tablet 5 mg PO QDAY #30 tab 03/03/18 11/21/18 Rx carvedilol 12.5 mg tablet 12.5 mg PO BID #30 tab 06/03/18 11/21/18 Rx atorvastatin 40 mg tablet 40 mg PO QHS #90 tab 07/30/18 11/21/18 Rx losartan 25 mg tablet 25 mg PO DAILY #90 tab 08/05/18 11/21/18 Rx furosemide 40 mg tablet See Rx Instructions .ROUTE 08/26/18 11/21/18 Rx .COMPLEX #60 tablet potassium chloride ER 20 mEq 10 meq PO BID #90 tab 10/08/18 11/21/18 Rx tablet,extended release(part/cryst) celecoxib 200 mg capsule 200 mg PO QDAY #90 cap 11/18/18 11/21/18 Rx Amiodarone HCl 200 mg PO DAILY 11/21/18 11/21/18 History Lasix IV twice a day 40 g, vancomycin IV 8. Time, care, counseling and coordination of care for this discharge is greater than 30 minutes. Exam - Vitals Vital Signs: Vital Signs Temperature 96.8 F Temperature Source Temporal Artery Scan Pulse Rate [Pulse Oximeter] 62 Pulse Rate 67 Respiratory Rate 12 Blood Pressure [Left Radial 134/80 Artery] Blood Pressure [Left Arm] 128/89 Pulse Ox 95 Oxygen Flow Rate 1.5 Oxygen Delivery Method Room Air Height 5 ft 8 in Weight 423 lb Patient Problems - Patient Problem List (1) Chronic systolic CHF (congestive heart failure), NYHA class 3 Current Visit: Yes Status: Chronic Onset Date: 03/01/17 Comment: Managed on spironolactone, losartan, furosemide, carvedilol Code(s): I50.22 - Chronic systolic (congestive) heart failure Category: Medical (2) Hyperlipidemia Current Visit: Yes Status: Chronic Qualifiers: Hyperlipidemia type: pure hypercholesterolemia Qualified Code(s): E78.00 - Pure hypercholesterolemia, unspecified; E78.0 - Pure hypercholesterolemia Category: Medical (3) Status post cardiac pacemaker procedure Current Visit: Yes Status: Chronic Category: Surgical (4) Atrial fibrillation Current Visit: Yes Status: Chronic Comment: continued anticoagulation with warfarin, rate control with amiodarone Code(s): I48.91 - Unspecified atrial fibrillation Qualifiers: Atrial fibrillation type: chronic Qualified Code(s): I48.2 - Chronic atrial fibrillation Category: Medical (5) Benign essential hypertension Current Visit: Yes Status: Chronic Onset Date: 08/15/12 Comment: well controlled Code(s): I10 - Essential (primary) hypertension Category: Medical (6) Acute cor pulmonale Current Visit: Yes Status: Acute Code(s): I26.09 - Other pulmonary embolism with acute cor pulmonale Category: Medical
[2018-11-23 11:16] VITALS: O2SAT 98
[2018-11-23] MEDS ORDERED: FUROSEMIDE 10 MG/1 ML - 2 ML VIAL IVP SCH (13:00)
== END 2018-11-23 11:10 | disposition short-term general hospital (02) | DRG 291 ==
LOC: ER 08:59 → MED/SURG 11:33
PROVIDERS: ADMIT Family Medicine; ATTEND Family Medicine